=== PATIENT | female | born 1965 | race African-American/Black ===

== ENCOUNTER 2022-11-11 13:06 | Emergency (ER) | payer SELFPAY ==
[2022-11-11] MEDS ORDERED: ALBUTEROL SO4 2.5/IPRATROPIUM 0.5 INH SOL 3 ML VIAL.NEB. NEB ONE ×3 (13:13→13:20)
[2022-11-11] MEDS ORDERED: methylPREDNISolone NA SUCC 40 MG/1 ML VIAL ONE (13:13)
[2022-11-11] MEDS ORDERED: methylPREDNISolone NA SUCC 125 MG/2 ML VIAL IVPB ONE (13:18)
[2022-11-11 13:36] LABS: VENOUS BASE EXCESS -0.3 mmol/L (-2-2); VENOUS O2 SATURATION 59.2 % (70-80); VENOUS PCO2 32.7 mmHg (38-52); VENOUS PH 7.461 (7.310-7.410)
[2022-11-11 13:37] LABS: BASO % 0.8 % (0-2.0); EOS % 4.7 % (0-4.5); HEMATOCRIT 40.3 % (32.4-45.2); HEMOGLOBIN 12.5 GM/dL (10.7-15.3); LYMPH % 44.6 % (8-40); MCH 22.4 pg (25.7-33.7); MEAN CELL VOLUME 72.1 fl (80-96); MEAN PLT VOLUME 8.6 fl (7.5-11.1); MONO % 5.5 % (3.8-10.2); NEUT % 44.4 % (42.8-82.8); PLATELET COUNT 250 10^3/uL (134-434); RBC 5.59 M/mm3 (3.60-5.2); WHITE BLOOD COUNT 9.8 K/mm3 (4.0-10.0)
[2022-11-11 13:38] VITALS: BMI 27.9
[2022-11-11 14:10] LABS: POTASSIUM 3.7 mmol/L (3.5-5.1)
[2022-11-11 14:11] LABS: ALBUMIN 3.5 g/dl (3.4-5.0); BLOOD UREA NITROGEN 12.9 mg/dL (7-18); CALCIUM 9.5 mg/dL (8.5-10.1)
[2022-11-11 14:16] LABS: TOT PROT 6.7 g/dl (6.4-8.2)
[2022-11-11 14:21] LABS: BILIRUBIN,TOTAL 0.3 mg/dL (0.2-1)
[2022-11-11 15:48] VITALS: BP 134/71; PULSE 74; RESP 17
== END 2022-11-11 15:48 | disposition home or self-care (01) ==
LOC: JER 13:06
PROC: 3E033GC Introduction of Other Therapeutic Substance into Peripheral Vein, Percutaneous Approach (ICD-10-PCS; principal; 2022-11-11)
PROC: 3E0F7GC Introduction of Other Therapeutic Substance into Respiratory Tract, Via Natural or Artificial Opening (ICD-10-PCS; 2022-11-11)
DX: R06.02 Shortness of breath (principal); R06.2 Wheezing; U07.1 COVID-19
CPT/HCPCS: 0241U-QW; 36415; 71045-TC-FY; 80053; 82803; 85025; 93005; 93010; 99285-25